=== PATIENT | male | born 1970 | race Caucasian/White ===

== ENCOUNTER → 2021-06-27 14:07 | Outpatient (CLI) | payer OTHER, SELFPAY ==
[2021-06-27 14:09] LABS: Bacteria 0 SEEN /hpf (None Seen); Mucous, Urine 0 SEEN /hpf (<or=2+); Red Blood Cells-Urine 0 SEEN /hpf (0-5); Squamous Epithelial Cells - UA 0 SEEN /hpf (0-5)
[2021-06-27 15:17] LABS: Absolute Lymphocyte Count 1.23 X10^3/uL (0.83-4.51); Absolute Neutrophil Count 3.4 X10^3/uL (2.0-7.7); Basophil# 0.05 X10^3/uL; Basophil% 0.9 % (0-1); Eosinophil# 0.41 X10^3/uL; Eosinophils% 7.1 % (0-5); Hematocrit 43.2 % (40-54); Hemoglobin 14.5 g/dL (13.0-16.5); Lymphocyte # 1.23 X10^3/ul (0.83-4.51); Lymphocyte % 21.4 % (19-41); Mean Corp Hgb Conc 33.6 g/dL (32-36); Mean Corpuscular Hgb 30.3 pg (27.0-32.0); Mean Corpuscular Volume 90.2 fL (80-94); Mean Platelet Vol. 9.6 fl (6.2-12.0); Monocyte# 0.63 X10^3/uL; NRBC Flagged by Analyzer 0 % (0-5); Neutrophil # 3.41 X10^3/uL (2.7-7.7); Neutrophil % 59.4 % (47-70); Platelet Count 265 K/mm3 (150-450); RBC Distribution Width CV 12.9 % (11.6-14.6); RBC Distribution Width SD 42.8 fl (35.1-43.9); Red Blood Count 4.79 M/mm3 (4.6-6.2); White Blood Count 5.7 K/mm3 (4.4-11.0)
[2021-06-27 15:32] LABS: Color, Urine Yellow (Yellow); Glucose, Dipstick Normal (Normal); Ketone-Dipstick Negative (Negative); Leukocyte Esterase-Dipstick 25 /ul (Negative); Nitrite-Dipstick Negative (Negative); Occult Blood-Urine Negative /ul (Negative); Protein-Dipstick Negative (Negative); Urine Bilirubin Dipstick Negative (Negative); Urine Clarity Sl. Cloudy (Clear); Urine Urobilinogen 1 mg/dl (Normal)
[2021-06-27 15:45] LABS: Calcium Oxalate Crystals Ur 1+ /hpf (<or=2+); White Blood Cells 0-5 SEEN /hpf (0-5)
[2021-06-27 16:01] LABS: AST(SGOT) 18 U/L (15-37); Alanine Aminotransfer ALT/SGPT 22 U/L (16-61); Albumin, Serum 3.3 g/dL (3.2-5.0); Alkaline Phosphatase 81 U/L (45-117); Anion Gap 4 (5-15); BUN 23 mg/dL (7-18); BUN/Creat Ratio 17.8 RATIO (10-20); Calcium,Total 8.6 mg/dL (8.5-10.1); Chloride 104 mmol/L (98-107); Cholesterol 187 mg/dL (200); Creatinine, Serum 1.29 mg/dL (0.70-1.30); EST Glomerular Filtration Rate 63 mL/min (>60); Est Glom Filt Rate - Afr Amer 76 mL/min (>60); Globulin 3.3 g/dL (2.2-4.2); Glucose 99 mg/dL (74-106); High Density Lipoprotein 68 mg/dL; PSA,Total - Annual Screen 3.72 ng/mL (0.00-4.00); Potassium 3.8 mmol/L (3.5-5.1); Protein, Total 6.6 g/dL (6.4-8.2); Sodium Level 137 mmol/L (136-145); Thyroid Stim Hormone (TSH) 1.23 uIU/mL (0.358-3.74); Triglycerides 108 mg/dL; Very Low Density Lipoprotein 22 mg/dL (5-40)
[2021-06-27 20:38] LABS: Chlamydia Trachomatis by PCR Negative (Negative); Neisserai gonorrhoeae by PCR Negative (Negative); Probe Check PASS; Sample Adequacy Control PASS; Specimen Processing Control PASS
== END ==
PROVIDERS: PCP Nurse Practitioner Family; Referring Provider Nurse Practitioner Family; Visit Provider Nurse Practitioner Family
DX: Z13.220 Encounter for screening for lipoid disorders (principal); K62.5 Hemorrhage of anus and rectum; R31.9 Hematuria, unspecified
CPT/HCPCS: 36415; 80053; 80061; 81001; 84153; 84443; 85025; 87086; 87491; 87591; G0103

== ENCOUNTER → 2021-06-30 11:02 | Outpatient (CLI) | payer OTHER, SELFPAY | PROVIDERS: PCP Nurse Practitioner Family; Visit Provider Nurse Practitioner Family | DX: K62.5 Hemorrhage of anus and rectum (principal); R31.9 Hematuria, unspecified | CPT/HCPCS: 82274 ==

== ENCOUNTER 2021-09-15 11:19 | Day surgery (SDC) | payer OTHER, SELFPAY ==
[2021-09-15] VITALS (7 sets, daily range): BP systolic 115–119; BP diastolic 73–89; PULSE 79–88; RESP 16; TEMP 36.2–36.3; O2SAT 99–100; BMI 25.7
--- NOTE | 2021-09-15 | ESO_PTH ---
PATIENT: MARY SARABIA LOC: EN U#:[id number] AGE/SX: 50/M ROOM: RE09/15/[address]: Dr. Sly Johnston DO : 1970 BED: DIS: 09/15/2021 SPEC #: [id number] RECD: 09/15/21 14:54 STATUS: DIGNA JOSHUA #: [id number] PJ: 09/15/21 00:[address]: Sly Johnston DEPT: SURGICAL PATHOLOGY RECD BY: Kirk Fox ENTERED: 09/16/21 10:26 SP TYPE: KELLEY CANTU DR: Enrico Ellington, SANDWICH HAND-C Tissues: A - Esophagus, NOS B - Gastric mucous membrane C - Sigmoid colon biopsy Procedures: Special Stain Group II Surgery Specimen Level IV Alcian Blue/PAS (control) HEADER OPERATION: EGD, colonoscopy PRE-OP DIAGNOSIS: GERD, screening TISSUE SUBMITTED: A ? Esophageal biopsies, B ? Hepatic flexure polyps x3 biopsies, C ? Sigmoid polyp biopsy MICROSCOPIC DIAGNOSIS A. Esophagus, biopsy: Gastroesophageal junctional mucosa with mild chronic inflammation. No evidence of goblet cell metaplasia. Focal changes of reflux. Fragments of benign small bowel mucosa. See comment. B. Colonic polyp at hepatic flexure, biopsy: Fragments of tubular adenoma. C. Sigmoid colon polyp, biopsy: Tubular adenoma. AM:humberto 09/17/2021 COMMENT A. Approximately 50% of the biopsy consists of small bowel mucosa. Clinical correlation is suggested. Alcian blue/PAS stain with matched control supports the above diagnosis. MICROSCOPIC DESCRIPTION Slides are reviewed. GROSS DESCRIPTION A - Received in fixative is one container labeled with the patient's name and designated esophageal biopsy. The specimen consists of multiple irregular fragments of light patricia soft tissue that in aggregate measure 0.9 x 0.7 x 0.1 cm. The specimen is totally submitted in one cassette. B - Received in fixative is one container labeled with the patient's name and designated hepatic flexure polyps. The specimen consists of multiple irregular fragments of light patricia soft tissue that in aggregate measure 1.5 x 0.6 x 0.1 cm. The specimen is totally submitted in one cassette. C - Received in fixative is one container labeled with the patient's name and designated sigmoid polyp biopsy. The specimen consists of one irregular fragment of light patricia soft tissue that measures 0.5 x 0.3 x 0.1 cm. The specimen is totally submitted in one cassette. / AM:humberto 09/16/21 TC:3 CPT: 27467 x3
--- NOTE | 2021-09-15 11:27 | HP.PCM_ITS ---
History and Physical Date of Admission: 09/15/21 [facility] Chief Complaint: est care Details: MARY SARABIA, is a 50 M who presents to the office today for Enrico Ellington referred r/t frequent bloody stools. About half of his BM have bright blood for the last five years. Has not seen anyone for this previously. Has history of diarrhea and constipation, started making fruit smoothies and this has normalized his stool. Has been having some heartburn in the last six months which has been getting worse. Six weeks ago he had some blood in his urine. Seeing urology for this who while evaluate further 09/04/21. Denies EGD and colonoscopy history. ROS Const Constitutional: Positive for fatigue Eyes Eyes: Positive for blurry vision and irritation Gastro GI: Positive for constipation, heartburn and Blood in stool Genitourinary Male: Positive for urinary incontinence and urinary frequency Musc Musculoskeletal: Positive for joint pain, back pain, muscle cramps, numbness, stiffness and tingling Neuro Neurology: Positive for numbness and tingling Endo Endocrine: Positive for fatigue Exam Const General: cooperative and comfortable Nutritional Appearance: average body habitus and well nourished HENIL Head: normal to inspection Ears: hearing grossly normal bilaterally Nose: external nose normal Face and sinus: normal facial exam Mouth: oral mucosae normal Throat: posterior oropharynx normal Eyes General: appearance normal, both eyes and all related structures Neck Neck: normal visual inspection Chest Chest palpation & inspection: normal inspection of the chest and normal palpation of entire chest wall Resp Effort & Inspection: normal respiratory effort Auscultation: Bilateral: Clear to Auscultation Cardio Palpation: normal PMI Rate: regular rate Rhythm: regular rhythm GI Inspection: normal to inspection Auscultation: normal bowel sounds Percussion: normal to percussion Palpation: no hepatosplenomegaly Skin General: no rashes or lesions noted Neuro General: patient alert Extrem General: normal to inspection Psych Affect: normal affect Quality Reporting Tobacco Screening ([facility] 138) Smoking Status: Current every day smoker Assessment and Plan Assessment and Plan (1) GERD (gastroesophageal reflux disease): Status: Acute Plan - Dr. Heart Friend, DO: Patient will undergo upper endoscopy to be evaluated for Marquez's esophagus. He was explained alternatives, risk, benefits including not withstanding bleeding, infection, sepsis, perforation, need for emergency or . He will have an ASA 1. (2) Encounter for screening colonoscopy: Status: Acute Plan - Dr. Heart Friend, DO: He will undergo screening colonoscopy however to the terminal ileum. At this time he is not having abdominal pain and is not having any cramping. His weight has been stable. He has no family history of colon cancer or colon polyps. He is actually in pretty good health. I have re-examined the patient. There are no clinical changes since date of exam.
[2021-09-15] MEDS: Lactated Ringers 1,000 ML 15 ML IV (11:45)
--- NOTE | 2021-09-15 12:25 | OP.EGD_ITS ---
Patient Name: Alden Main Procedure Date: 09/15/2021 12:21 PM Date of : 1970 Age: 50 Procedure: Upper GI endoscopy Indications: Heartburn Providers: Sly Johnston DO Medicines: See the Anesthesia note for documentation of the administered medications Patient Profile: This is a 50 year old male. Refer to note in patient chart for documentation of history and physical. Patient has symptoms. Complications: No immediate complications. Procedure: Pre-Anesthesia Assessment: - Prior to the procedure, a History and Physical was performed, and patient medications and allergies were reviewed. The patient is competent. The risks and benefits of the procedure and the sedation options and risks were discussed with the patient. All questions were answered and informed consent was obtained. Patient identification and proposed procedure were verified by the physician in the pre-procedure area. Mental Status Examination: alert and oriented. Airway Examination: normal oropharyngeal airway and neck mobility. Respiratory Examination: clear to auscultation. CV Examination: normal. Prophylactic Antibiotics: The patient does not require prophylactic antibiotics. Prior Anticoagulants: The patient has taken no previous anticoagulant or antiplatelet agents. ASA Grade Assessment: II - A patient with mild systemic disease. After reviewing the risks and benefits, the patient was deemed in satisfactory condition to undergo the procedure. The anesthesia plan was to use moderate sedation / analgesia (conscious sedation). Immediately prior to administration of medications, the patient was re-assessed for adequacy to receive sedatives. The heart rate, respiratory rate, oxygen saturations, blood pressure, adequacy of pulmonary ventilation, and response to care were monitored throughout the procedure. The physical status of the patient was re-assessed after the procedure. After obtaining informed consent, the endoscope was passed under direct vision. Throughout the procedure, the patient's blood pressure, pulse, and oxygen saturations were monitored continuously. The Endoscope was introduced through the mouth, and advanced to the second part of duodenum. The upper GI endoscopy was accomplished without difficulty. The patient tolerated the procedure well. Moderate Sedation: Moderate (conscious) sedation was administered by the endoscopy nurse and supervised by the endoscopist. The following parameters were monitored: oxygen saturation, heart rate, blood pressure, and response to care. Total physician intraservice time was 15 minutes. Findings: LA Grade C (one or more mucosal breaks continuous between tops of 2 or more mucosal folds, less than 75% circumference) esophagitis with no bleeding was found 34 to 35 cm from the incisors. Biopsies were taken with a cold forceps for histology. Verification of patient identification for the specimen was done. Estimated blood loss was minimal. The entire examined stomach was normal. Patchy moderate inflammation characterized by congestion (edema) was found in the duodenal bulb, in the first portion of the duodenum and in the second portion of the duodenum. Biopsies for histology were taken with a cold forceps for evaluation of celiac disease. Verification of patient identification for the specimen was done. Impression: - LA Grade C reflux esophagitis. Rule out Marquez's esophagus. Biopsied. - Normal stomach. - Duodenitis. Biopsied. Recommendation: - Discharge patient to home. - Resume previous diet. - Continue present medications. - Use Protonix (pantoprazole) 40 mg PO BID for 4 weeks. Procedure Code(s): --- Professional --- 53581, Esophagogastroduodenoscopy, flexible, transoral; with biopsy, single or multiple 89458, 59, Moderate sedation services provided by the same physician or other qualified health resident care aide performing the diagnostic or therapeutic service that the sedation supports, requiring the presence of an independent trained observer to assist in the monitoring of the patient's level of consciousness and physiological status; initial 15 minutes of intraservice time, patient age 5 years or older CPT copyright 2017 [employer]. All rights reserved. The codes documented in this report are preliminary and upon software quality assurance engineer review may be revised to meet current compliance requirements. Sly Johnston DO 09/15/2021 12:24:47 PM This report has been signed electronically. Number of Addenda: 1 Note Initiated On: 09/15/2021 12:21 PM Addendum Number: 1 Addendum Date: 06/10/2022 7:09:21 AM MAC was used instead of moderate sedation for the patient. Sly Johnston DO 06/10/2022 7:09:25 AM This report has been signed electronically.
--- NOTE | 2021-09-15 12:26 | OP.CCLET_ITS ---
06/10/2022 Enrico Ellington NP [address] [place] [address] [place] [address] Re : Upper GI endoscopy procedure for Alden Main Dear Mr. Ellington This procedure was performed on Wednesday, September 15, 2021. My impressions and recommendations are as follows: Impressions : - LA Grade C reflux esophagitis. Rule out Marquez's esophagus. Biopsied. - Normal stomach. - Duodenitis. Biopsied. Recommendations : - Discharge patient to home. - Resume previous diet. - Continue present medications. - Use Protonix (pantoprazole) 40 mg PO BID for 4 weeks. My findings are described in the full procedure note, which is enclosed. If I can be of further assistance, please feel free to contact me at . Sincerely, Sly Friend, 09/15/2021 12:24:47 PM This report has been signed electronically.
--- NOTE | 2021-09-15 12:47 | OP.COLON_ITS ---
Patient Name: Alden Main Procedure Date: 09/15/2021 12:41 PM Date of : 1970 Age: 50 Procedure: Colonoscopy Indications: Screening for colorectal malignant neoplasm, This is the patient's first colonoscopy Providers: Sly Johnston DO Medicines: See the Anesthesia note for documentation of the administered medications Patient Profile: This is a 50 year old male. Refer to note in patient chart for documentation of history and physical. Patient has symptoms. Last Colonoscopy: date unknown. Complications: No immediate complications. Procedure: Pre-Anesthesia Assessment: - Prior to the procedure, a History and Physical was performed, and patient medications and allergies were reviewed. The patient is competent. The risks and benefits of the procedure and the sedation options and risks were discussed with the patient. All questions were answered and informed consent was obtained. Patient identification and proposed procedure were verified by the physician in the pre-procedure area. Mental Status Examination: alert and oriented. Airway Examination: normal oropharyngeal airway and neck mobility. Respiratory Examination: clear to auscultation. CV Examination: normal. Prophylactic Antibiotics: The patient does not require prophylactic antibiotics. Prior Anticoagulants: The patient has taken no previous anticoagulant or antiplatelet agents. ASA Grade Assessment: II - A patient with mild systemic disease. After reviewing the risks and benefits, the patient was deemed in satisfactory condition to undergo the procedure. The anesthesia plan was to use moderate sedation / analgesia (conscious sedation). Immediately prior to administration of medications, the patient was re-assessed for adequacy to receive sedatives. The heart rate, respiratory rate, oxygen saturations, blood pressure, adequacy of pulmonary ventilation, and response to care were monitored throughout the procedure. The physical status of the patient was re-assessed after the procedure. After I obtained informed consent, the scope was passed under direct vision. Throughout the procedure, the patient's blood pressure, pulse, and oxygen saturations were monitored continuously. The Colonoscope was introduced through the anus and advanced to the terminal ileum. The colonoscopy was performed without difficulty. The patient tolerated the procedure well. The quality of the bowel preparation was good. Moderate Sedation: Moderate (conscious) sedation was administered by the endoscopy nurse and supervised by the endoscopist. The patient's oxygen saturation, heart rate, blood pressure and response to care were monitored. Total physician intraservice time was 15 minutes. Findings: An anal fissure was found on perianal exam. Four sessile polyps were found in the sigmoid colon and hepatic flexure. The polyps were 1 to 2 mm in size. These polyps were removed with a hot snare. Resection and retrieval were complete. Verification of patient identification for the specimen was done. Estimated blood loss was minimal. A few small-mouthed diverticula were found in the sigmoid colon. Hemorrhoids were found on perianal exam. The exam was otherwise without abnormality on direct and retroflexion views. Impression: - Anal fissure found on perianal exam. - Four 1 to 2 mm polyps in the sigmoid colon and at the hepatic flexure, removed with a hot snare. Resected and retrieved. - Diverticulosis in the sigmoid colon. - Hemorrhoids found on perianal exam. - The examination was otherwise normal on direct and retroflexion views. Recommendation: - Discharge patient to home. - Resume previous diet. - Use hydrocortisone suppository 25 mg 2 per rectum once a day for 3 weeks. - Await pathology results. - Repeat colonoscopy in 3 years for surveillance based on pathology results. - Return to GI office in 2 weeks. - Continue present medications. Procedure Code(s): --- Professional --- 98882, Colonoscopy, flexible; with removal of tumor(s), polyp(s), or other lesion(s) by snare technique 58254, 59, Moderate sedation services provided by the same physician or other qualified health morning caregiver performing the diagnostic or therapeutic service that the sedation supports, requiring the presence of an independent trained observer to assist in the monitoring of the patient's level of consciousness and physiological status; initial 15 minutes of intraservice time, patient age 5 years or older CPT copyright 2017 [employer]. All rights reserved. The codes documented in this report are preliminary and upon icing maker review may be revised to meet current compliance requirements. Sly Johnston DO 09/15/2021 12:47:32 PM This report has been signed electronically. Number of Addenda: 1 Note Initiated On: 09/15/2021 12:41 PM Addendum Number: 1 Addendum Date: 06/10/2022 7:09:33 AM MAC was used instead of moderate sedation for the patient. Sly Johnston DO 06/10/2022 7:09:40 AM This report has been signed electronically.
--- NOTE | 2021-09-15 12:47 | OP.CCLET_ITS ---
06/10/2022 Enrico Ellington NP [address] [place] [address] [place] [address] Re : Colonoscopy procedure for Alden Main Dear Mr. Ellington This procedure was performed on Wednesday, September 15, 2021. My impressions and recommendations are as follows: Impressions : - Anal fissure found on perianal exam. - Four 1 to 2 mm polyps in the sigmoid colon and at the hepatic flexure, removed with a hot snare. Resected and retrieved. - Diverticulosis in the sigmoid colon. - Hemorrhoids found on perianal exam. - The examination was otherwise normal on direct and retroflexion views. Recommendations : - Discharge patient to home. - Resume previous diet. - Use hydrocortisone suppository 25 mg 2 per rectum once a day for 3 weeks. - Await pathology results. - Repeat colonoscopy in 3 years for surveillance based on pathology results. - Return to GI office in 2 weeks. - Continue present medications. My findings are described in the full procedure note, which is enclosed. If I can be of further assistance, please feel free to contact me at . Sincerely, Sly Johnston, 09/15/2021 12:47:32 PM This report has been signed electronically.
== END 2021-09-15 14:11 | disposition home or self-care (01) ==
LOC: EN 11:22 → AC 11:23
PROVIDERS: PCP Nurse Practitioner Family; Referring Provider Nurse Practitioner Family; Visit Provider Internal Medicine Gastroenterology
PROC: 0DJD8ZZ Inspection of Lower Intestinal Tract, Via Natural or Artificial Opening Endoscopic (ICD-10-PCS; CPT 45378; principal; 2021-09-15 10:25)
DX: Z12.11 Encounter for screening for malignant neoplasm of colon (principal); D12.3 Benign neoplasm of transverse colon; D12.5 Benign neoplasm of sigmoid colon; K64.9 Unspecified hemorrhoids; K60.2 Anal fissure, unspecified; K57.30 Diverticulosis of large intestine without perforation or abscess without bleeding; K21.00 Gastro-esophageal reflux disease with esophagitis, without bleeding; K29.80 Duodenitis without bleeding; F17.200 Nicotine dependence, unspecified, uncomplicated
CPT/HCPCS: 43239; 45385; 87426; 88305; 88313; J7120; J2405

== ENCOUNTER 2022-06-19 06:03 | Day surgery (SDC) | payer OTHER, SELFPAY ==
[2022-06-19] MEDS: Lactated Ringers 1,000 ML 15 ML IV (06:20)
[2022-06-19 06:30] VITALS: BP 144/91; PULSE 91; RESP 18; TEMP 36.3; O2SAT 100; BMI 26.2
--- NOTE | 2022-06-19 06:35 | HP.PCM_ITS ---
History and Physical Date of Admission: 06/19/22 [facility] [address] [place] [address] OFFICE VISIT Date of Service:? 03/20/22 MR#: [id number] Acct: [id number] Name:MARY CAMPOS Rep #: [id number] : 1970 ? ? Provider: ?MARGO Sommers Age/Sex:? 51/M ? ? Location: [facility] [place].[facility] Status: Signed with Addenda ADDENDUM by Cary Pinto on 03/24/22 at 1039 Office Procedure Documentation entered by Cary Pinto? 03/24/22 10:39: Miscellaneous Procedure Procedure Performed By: Procedure performed by: Cary Pinto Details ESOGUARD screening performed. Pt tolerated procedure well. All questions were answered. Advised we will call with results. 03/24/22 1039 <Electronically signed by Cary Pinto > Date Cary Pinto? cc: ? MARGO Ellington ~* Signed Intake Vital Signs ? 09/15/2111:38 03/20/2214:13 Height 5 ft 11 in 5 ft 11 in Weight: ? 183 lb BMI ? 25.5 BP ? 140/93 H Blood Pressure Location ? Rt brachial Position ? Sitting Pulse ? 95 Pulse Oximetry (%) ? 96 Oxygen Delivery Method ? room air Intake Visit Reasons:?5 MO FU Chief Complaint: est care Allergies No Known Allergies Allergy (Verified 03/20/22 14:12) Medications sildenafil 50 mg tablet 50 mg PO DAILY PRN sexual activity #30 tabs 06/27/21 [Rx Confirmed 03/20/22] hydrocortisone acetate 25 mg rectal suppository 25 mg SD BID 14 days #24 ea 09/15/21 [Rx Confirmed 03/20/22] pantoprazole 40 mg tablet,delayed release 40 mg PO BID #180 tabs 10/10/21 [Rx Confirmed 03/20/22] PFSH Medical History? Alcohol use Back pain Encounter for screening colonoscopy Erectile dysfunction GERD (gastroesophageal reflux disease) Heartburn Hematuria IBS (irritable bowel syndrome) Rectal bleeding Smoker Wears dentures Surgical History? History of appendectomy History of tonsillectomy and adenoidectomy Family History? Father Alcohol abuseGrandfather Alcohol abuseMother Depression Social History? Smoking Status:? Current every day smoker tobacco type: cigarettes alcohol intake:? current alcohol intake frequency: 0-2 drinks per day Alcohol type: hard liquor substance use type:? methamphetamine what type of physical activity do you participate in:? walking frequency:? 3-4 times per week HPI HPI Chief Complaint: est care Details: MARY SARABIA, is a 51 M who presents to the office today for 6 month f/u GERD, esophagitis His EGD in 09/2021 showed LA grade C esophagitis, negative for Marquez's. We wanted to closely f/u the severe esophagitis. He completed the month-long course of sucralfate, then 2-month course of pantoprazole 40 mg twice daily, then pantoprazole 40 mg daily.? Now he is just taking pantoprazole as needed, t ypically less than once a week, usually just if he eats pizza.? He lives in [place].? Prior to his colonoscopy in 09/2020 he had been having bloody stools for 5 years.? He was found to have hemorrhoids and an anal fissure, those were treated successfully with hydrocortisone suppositories.? He has had no further blood per rectum.? Bowels are regular, no diarrhea or constipation. 10/03/21 EGD and Colonoscopy Impression: ? - LA Grade C reflux esophagitis. Rule out ? Marquez's esophagus. Biopsied. ? - Normal stomach. ? - Duodenitis. Biopsied. Impression: ? - Anal fissure found on perianal exam. ? - Four 1 to 2 mm polyps in the sigmoid colon ? and at the hepatic flexure, removed with a hot ? snare. Resected and retrieved. ? - Diverticulosis in the sigmoid colon. ? - Hemorrhoids found on perianal exam. ? - The examination was otherwise normal on ? direct and retroflexion views. MICROSCOPIC DIAGNOSIS A.? Esophagus, biopsy: ?Gastroesophageal junctional mucosa with mild chronic inflammation. ?No evidence of goblet cell metaplasia. ?Focal changes of reflux. ?Fragments of benign small bowel mucosa. ?See comment. B.? Colonic polyp at hepatic flexure, biopsy: ?Fragments of tubular adenoma. C.? Sigmoid colon polyp, biopsy: ?Tubular adenoma ROS Const Constitutional: No fatigue ENT ENT: No difficulty swallowing Gastro GI: No abdominal pain, belching, bloating, change in bowel habits, change in stool character, coffee ground emesis, constipation, cramping, diarrhea, heartburn, difficulty swallowing, feeling full early, excessive flatus, incontinent of stools, Vomiting blood/hematemesis, Blood in stool, loose stools, Black,tarry stools, nausea/dyspepsia, pain with swallowing, vomiting or other Musc Musculoskeletal: No joint pain Skin Skin: No yellowing of the eye or itchy eyes Psych Psychiatric: No anxiety and No depression Endo Endocrine: No fatigue Aller/Imm Allergy/Immunologic: No itchy eyes Johnny/Lymp Hematologic/Lymphatic: No easy bleeding or easy bruising Exam Const General: cooperative, healthy appearing, comfortable, well developed and well groomed GI Inspection: normal to inspection Palpation: soft, no masses and nontender Quality Reporting Tobacco Screening ([facility] 138) Smoking Status: Current every day smoker Assessment and Plan Assessment and Plan (1) GERD (gastroesophageal reflux disease): ?Status:?Acute ?Plan: He had significant esophagitis on EGD in 09/2021. His heartburn was significant prior to treatment with sucralfate and pantoprazole; now he only uses pantoprazole prn, primarily when he eats pizza. We will do EsoGuard screening test for Marquez's today. We will call him with result and f/u plan. I have re-examined the patient. There are no clinical changes since date of exam.
--- NOTE | 2022-06-19 07:15 | EGD_PTH ---
PATIENT: MARY SARABIA LOC: EN U#:[id number] AGE/SX: 51/M ROOM: RE06/19/[address]: Dr. Sly Johnston DO : 1970 BED: DIS: 06/19/2022 SPEC #: [id number] RECD: 06/19/22 13:18 STATUS: DIGNA JOSHUA #: [id number] PJ: 06/19/22 07:[address]: Sly Johnston DEPT: SURGICAL PATHOLOGY RECD BY: Jane Tipton ENTERED: 06/19/22 13:38 SP TYPE: EGD BIOPSY OT DR: Enrico Ellington, CELERY WRAPPER-C Tissues: Esophagus, NOS Procedures: Special Stain Group II Surgery Specimen Level IV Alcian Blue/PAS (control) HEADER OPERATION: EGD ([facility]) PRE-OP DIAGNOSIS: GERD TISSUE SUBMITTED: Distal esophagus MICROSCOPIC DIAGNOSIS Distal esophagus, biopsy: Gastroesophageal junctional mucosa with mild chronic inflammation. Focal changes of reflux. No evidence of goblet cell metaplasia. See comment. AM:humberto 06/22/2022 COMMENT Alcian blue/PAS stain with matched control supports the above diagnosis. MICROSCOPIC DESCRIPTION Slides are reviewed. GROSS DESCRIPTION Received in fixative is one container labeled with the patient's name and designated distal esophagus. The specimen consists of multiple irregular fragments of light patricia soft tissue that in aggregate measure 2 x 0.5 x 0.1 cm. The specimen is totally submitted in one cassette. / SJ:humberto 06/19/2022 TC:3 CPT: 73353, 40799
--- NOTE | 2022-06-19 07:53 | OP.CCLET_ITS ---
06/19/2022 Enrico Ellington NP [address] [place] [address] [place] [address] Re : Upper GI endoscopy procedure for Alden Main Dear Mr. Ellington This procedure was performed on Sunday, June 19, 2022. My impressions and recommendations are as follows: Impressions : - Z-line irregular, 40 cm from the incisors. Biopsied. - Normal stomach. - No gross lesions in the second portion of the duodenum. Recommendations : - Discharge patient to home. - Resume previous diet. - Continue present medications. - Await pathology results. My findings are described in the full procedure note, which is enclosed. If I can be of further assistance, please feel free to contact me at . Sincerely, Sly Johnston, 06/19/2022 7:52:32 AM This report has been signed electronically.
--- NOTE | 2022-06-19 07:53 | OP.EGD_ITS ---
Patient Name: Alden Main Procedure Date: 06/19/2022 7:37 AM Date of : 1970 Age: 51 Procedure: Upper GI endoscopy Indications: Heartburn, Suspected esophageal reflux Providers: Sly Johnston DO Medicines: Monitored Anesthesia Care Patient Profile: This is a 51 year old male. Refer to note in patient chart for documentation of history and physical. Patient has symptoms of chronic heartburn. Complications: No immediate complications. Procedure: Pre-Anesthesia Assessment: - Prior to the procedure, a History and Physical was performed, and patient medications and allergies were reviewed. The patient is competent. The risks and benefits of the procedure and the sedation options and risks were discussed with the patient. All questions were answered and informed consent was obtained. Patient identification and proposed procedure were verified by the physician in the pre-procedure area. Mental Status Examination: alert and oriented. Airway Examination: normal oropharyngeal airway and neck mobility. Respiratory Examination: clear to auscultation. CV Examination: normal. Prophylactic Antibiotics: The patient does not require prophylactic antibiotics. Prior Anticoagulants: The patient has taken no previous anticoagulant or antiplatelet agents. ASA Grade Assessment: II - A patient with mild systemic disease. After reviewing the risks and benefits, the patient was deemed in satisfactory condition to undergo the procedure. The anesthesia plan was to use monitored anesthesia care (MAC). Immediately prior to administration of medications, the patient was re-assessed for adequacy to receive sedatives. The heart rate, respiratory rate, oxygen saturations, blood pressure, adequacy of pulmonary ventilation, and response to care were monitored throughout the procedure. The physical status of the patient was re-assessed after the procedure. After obtaining informed consent, the endoscope was passed under direct vision. Throughout the procedure, the patient's blood pressure, pulse, and oxygen saturations were monitored continuously. The gastroscope was introduced through the mouth, and advanced to the second part of duodenum. The upper GI endoscopy was accomplished without difficulty. The patient tolerated the procedure well. Scope In: 7:42:19 AM Scope Out: 7:47:45 AM Total Procedure Duration Time 0 hours 5 minutes 26 seconds Findings: The Z-line was irregular and was found 40 cm from the incisors. Biopsies were taken with a cold forceps for histology. Verification of patient identification for the specimen was done. Estimated blood loss was minimal. The entire examined stomach was normal. The cardia and gastric fundus were normal on retroflexion. No gross lesions were noted in the second portion of the duodenum. Impression: - Z-line irregular, 40 cm from the incisors. Biopsied. - Normal stomach. - No gross lesions in the second portion of the duodenum. Recommendation: - Discharge patient to home. - Resume previous diet. - Continue present medications. - Await pathology results. Procedure Code(s): --- Professional --- 55509, Esophagogastroduodenoscopy, flexible, transoral; with biopsy, single or multiple CPT copyright 2017 [employer]. All rights reserved. The codes documented in this report are preliminary and upon machine pecan gatherer review may be revised to meet current compliance requirements. Sly Johnston DO 06/19/2022 7:52:32 AM This report has been signed electronically. Number of Addenda: 0 Note Initiated On: 06/19/2022 7:37 AM
[2022-06-19 07:54] VITALS: BP 128/92; BP 144/91; PULSE 101; RESP 106; TEMP 36.9; O2SAT 99
[2022-06-19 07:55] VITALS: BP 123/90; BP 144/91; PULSE 95; RESP 16; O2SAT 100
[2022-06-19 07:59] VITALS: BP 124/82; BP 144/91; PULSE 94; RESP 16; O2SAT 99
[2022-06-19 08:05] VITALS: BP 120/85; BP 144/91; PULSE 96; RESP 16; TEMP 36.8; O2SAT 99
[2022-06-19 08:10] VITALS: BP 144/91
== END 2022-06-19 09:35 | disposition home or self-care (01) ==
LOC: EN 06:05 → AC 06:05
PROVIDERS: PCP Nurse Practitioner Family; Referring Provider Nurse Practitioner Family; Visit Provider Internal Medicine Gastroenterology
PROC: 0DJ08ZZ Inspection of Upper Intestinal Tract, Via Natural or Artificial Opening Endoscopic (ICD-10-PCS; CPT 43235; principal; 2022-06-19 07:10)
DX: K21.9 Gastro-esophageal reflux disease without esophagitis (principal); Z72.89 Other problems related to lifestyle; Z79.899 Other long term (current) drug therapy; Z87.891 Personal history of nicotine dependence
CPT/HCPCS: 43239; 88305; 88313; J7120; J2405